=== PATIENT | male | born 1955 | race Caucasian/White ===

== ENCOUNTER 2019-11-13 18:58 | Inpatient (IN) | payer OTHER ==
[~2019-11-13] VITALS: Wt 6.0 kg
[2019-11-13] MEDS ORDERED: ALTACE10 MG (19:49)
[2019-11-13] MEDS ORDERED: FORTAMET500 MG (19:49)
--- NOTE | 2019-11-13 19:49 | NUR ---
SE RECIBE PTE AMBULANDO ALERTA Y ORIENTADO X 3 QUIEN REFIERE DOLOR EN HERNIA INGUINAL HACE MAS DE 5 VAZQUEZ. PTE INDICA QUE RECIBIO TRATAMIENTO MEDICO EN [facility] [place] E INDICA QUE AUN PERSISTE EL DOLOR. PTE REFIERE QUE SE COMUNICO CON DR. OSMAN QUIEN LO REFIRIO PARA ER. SE UBICA A PTE EN AREA DE OBSERVACION PARA SER EVALUADO POR MEDICO.
[2019-11-17] MEDS ORDERED: PROTONIX40 MG PO (11:29)
[2019-11-17] MEDS ORDERED: AMOX1TAB5 PO (11:29)
[2019-11-17] MEDS ORDERED: ULTRACET PO (11:29)
== END 2019-11-17 11:44 | disposition home or self-care (01) | DRG 352 ==
LOC: ER 18:58 → SURG 21:38
PROVIDERS: ADMIT Surgery
PROC: 0YQ60ZZ Repair Left Inguinal Region, Open Approach (ICD-10-PCS; principal; 2019-11-14 07:00)
DX: K40.31 Unilateral inguinal hernia, with obstruction, without gangrene, recurrent (principal); E11.22 Type 2 diabetes mellitus with diabetic chronic kidney disease; I12.9 Hypertensive chronic kidney disease with stage 1 through stage 4 chronic kidney disease, or unspecified chronic kidney disease; N18.3 Chronic kidney disease, stage 3 (moderate); Z79.4 Long term (current) use of insulin